=== PATIENT | male | born 2000 ===

== ENCOUNTER 2025-02-27 03:25 | Emergency (ER) | payer OTHER, SELFPAY ==
[2025-02-27] VITALS (21 sets, daily range): BP systolic 89–105; BP diastolic 49–62; PULSE 83–97; RESP 12–27; TEMP 36.1; O2SAT 87–100; BMI 21.2
--- NOTE | 2025-02-27 03:54 | DI.CT.S_ITS ---
PROCEDURE: CT HEAD/BRAIN WO CON INDICATIONS: AMS, etoh, unknown injury/fall TECHNIQUE: Noncontrast 4.5 mm thick angled axial sections acquired from the foramen magnum to the vertex, with coronal and sagittal reformats. For radiation dose reduction, the following was used: automated exposure control, adjustment of mA and/or kV according to patient size. COMPARISON: None. FINDINGS: Image quality: Diagnostic. CSF spaces: Basal cisterns are patent. No extra-axial fluid collections. Ventricles are normal in size and shape. Brain: No midline shift. No intracranial mass effect or hemorrhage. Varela- white matter interface is normal. Skull and face: Calvarium and visualized facial bones are intact, without suspicious lesions. Sinuses: Visualized sinuses and mastoids are clear. IMPRESSION: No evidence acute intracranial process. Comment: Final report is concordant with preliminary interpretation provided by [facility]. Dictated by: Augusto Zavala M.D. on 02/27/2025 at 8:02 Approved by: Augusto Zavala M.D. on 02/27/2025 at 8:03
--- NOTE | 2025-02-27 03:54 | DI.CT.S_ITS ---
PROCEDURE: CT CERVICAL SPINE WO CON INDICATIONS: etoh, AMS, unknown injury TECHNIQUE: Noncontrast 3 mm thick sections acquired from the skull base to the T4 level. Sagittal and coronal reformats were then constructed. For radiation dose reduction, the following was used: automated exposure control, adjustment of mA and/or kV according to patient size. COMPARISON: None. FINDINGS: Image quality: Excellent. Bones: No fractures or dislocations. Visualized superior ribs are intact. Soft tissues: Prevertebral soft tissues are normal in thickness. No paravertebral hematomas. No apical pneumothoraces. IMPRESSION: 1. No acute cervical fracture or dislocation. Comment: Final report is concordant with preliminary interpretation provided by [facility]. Dictated by: Augusto Zavala M.D. on 02/27/2025 at 8:03 Approved by: Augusto Zavala M.D. on 02/27/2025 at 8:04
--- NOTE | 2025-02-27 03:56 | ED.AMS ---
HPI - Altered Mental Status <Navdeep Villalba MD - Last Filed: 02/27/25 16:49> General Chief Complaint: Toxicology Problem Stated Complaint: etoh Time Seen by Provider: 02/27/25 03:52 Source: EMS Mode of arrival: EMS History of Present Illness HPI narrative: 24-year-old male found at [facility] with altered mental status, arrival by ambulance, suspected substance abuse, suspected alcohol and/or other substance intoxication. No known suicidal ideation but details not known. Unknown if patient has any seizure disorder, or specifics of any substances that could have been taking, or any trauma that may or may not have occurred. No incontinence of urine or stool reported. No other history known. Exam <Navdeep Villalba MD - Last Filed: 02/27/25 16:49> Narrative Exam Narrative: GENERAL: Well-developed patient, decreased mental status, alcohol on breath. HEAD: Atraumatic. Normocephalic. EYES: Pupils equal round and reactive. Extraocular motions intact. No scleral icterus. No injection or drainage. ENT: Nose without bleeding, purulent drainage. Throat without erythema, tonsillar hypertrophy or exudate. Airway patent. NECK: Trachea midline. Non tender CARDIOVASCULAR: Regular rate and rhythm without murmurs, gallops, or rubs. RESPIRATORY: Clear to auscultation. Breath sounds equal bilaterally. No wheezes, rales, or rhonchi. GASTROINTESTINAL: Abdomen soft, non-tender, nondistended. EXTREMITIES: No edema or joint tenderness. BACK: Nontender without deformity or crepitance. No flank tenderness. NEURO: AOx3. Decreased mental status, seems to be maintaining his airway, pupils equal and round. Withdraws to pain. No decorticate or decerebrate posturing. SKIN: No rash or erythema of visible areas Initial Vital Signs Initial Vital Signs: Vital Signs Pulse Rate 88 02/27/25 03:26 Blood Pressure 102/54 L 02/27/25 03:26 Pulse Oximetry 95 02/27/25 03:26 Oxygen Delivery Method Room Air 02/27/25 03:26 <Jazmyne Mcclellan DO - Last Filed: 02/27/25 17:39> Initial Vital Signs Initial Vital Signs: Vital Signs Pulse Rate 88 02/27/25 03:26 Blood Pressure 102/54 L 02/27/25 03:26 Pulse Oximetry 95 02/27/25 03:26 Oxygen Delivery Method Room Air 02/27/25 03:26 Course <Navdeep Villalba MD - Last Filed: 02/27/25 16:49> Orders Ordered: ED Orders 02/27/25 11:12 Consult to [facility] [employer] Stat Discontinued Medications Sodium Chloride (Normal Saline 0.9%) 1,000 mls @ 1,000 mls/hr IV BOLUS ONE Stop: 02/27/25 05:12 Last Infusion: 02/27/25 05:32 Dose: Infused Documented By: Admin: 02/27/25 04:32 Dose: 1,000 mls/hr Documented By: KARYN Vital Signs Vital signs: Vital Signs - 8 hr 02/27/25 09:46 02/27/25 11:52 02/27/25 11:54 Pulse Rate 96 H 94 H Respiratory Rate 25 H Blood Pressure 101/56 L Pulse Oximetry 94 98 Oxygen Delivery Method 02/27/25 11:56 02/27/25 12:00 Pulse Rate 89 97 H Respiratory Rate 20 Blood Pressure 101/56 L Pulse Oximetry 98 98 Oxygen Delivery Method Room Air <Jazmyne Mcclellan DO - Last Filed: 02/27/25 17:39> Orders Ordered: ED Orders 02/27/25 11:12 Consult to [facility] Al[employer] Stat Discontinued Medications Sodium Chloride (Normal Saline 0.9%) 1,000 mls @ 1,000 mls/hr IV BOLUS ONE Stop: 02/27/25 05:12 Last Infusion: 02/27/25 05:32 Dose: Infused Documented By: Admin: 02/27/25 04:32 Dose: 1,000 mls/hr Documented By: KARYN Vital Signs Vital signs: Vital Signs - 8 hr 02/27/25 09:46 02/27/25 11:52 02/27/25 11:54 Pulse Rate 96 H 94 H Respiratory Rate 25 H Blood Pressure 101/56 L Pulse Oximetry 94 98 Oxygen Delivery Method 02/27/25 11:56 02/27/25 12:00 Pulse Rate 89 97 H Respiratory Rate 20 Blood Pressure 101/56 L Pulse Oximetry 98 98 Oxygen Delivery Method Room Air MDM - Altered Mental Status <Navdeep Villalba MD - Last Filed: 02/27/25 16:49> Lab Data Attestation: I reviewed the patient's lab results. Lab results narrative: White blood cell count 6500, hemoglobin 17.3, platelets adequate. Glucose 106 normal renal function, serum CO2, serum potassium. Sodium 147 slight increased. T bili and alkaline phosphatase normal, transaminases mildly elevated. Urine drug screen positive for cocaine and benzodiazepine. 02/27/25 03:15 02/27/25 03:15 Labs: Lab Results 02/27/25 02/27/25 02/27/25 Range/Units 03:15 04:25 06:08 WBC 6.5 (4.5-11.0) X10^3/uL RBC 5.23 (4.5-5.9) X10^6/uL Hgb 17.3 (13.5-17.5) g/dL Hct 49.2 (41-53) % MCV 94.1 (80-100) fL MCH 33.0 (26-34) PG MCHC 35.1 (30-36) % RDW 16.6 H (11.6-14.8) % Plt Count 206 (150-400) X10^3/uL Neut % (Auto) 62.0 (50-75) % Lymph % (Auto) 25.4 (25-40) % Brule % (Auto) 10.4 (3-14) % Eos % (Auto) 1.5 L (2-4) % Baso % (Auto) 0.7 (0-2) % Neut # (Auto) 4000 (5653-4463) /uL Lymph # (Auto) 1700 (7398-4602) /uL Brule # (Auto) 700 (0-900) /uL Eos # (Auto) 100 (0-450) /uL Baso # (Auto) 0 (0-100) /uL Sodium 147 H (137-145) mmol/L Potassium 3.8 (3.4-5.1) mmol/L Chloride 105 (98-107) mmol/L Carbon Dioxide 24 (22-32) mmol/L BUN 14 (9-20) mg/dL Creatinine 0.93 (0.66-1.25) mg/dL Estimated GFR > 60 (>60) mL/min BUN/Creatinine Ratio 15.1 (6-22) Glucose 106 H (70-99) mg/dL Calcium 9.0 (8.4-10.2) mg/dL Total Bilirubin 0.6 (0.2-1.3) mg/dL AST 77 H (17-59) IU/L ALT 119 H (<50) IU/L Alkaline Phosphatase 83 (38-126) U/L Total Protein 8.4 H (6.3-8.2) g/dL Albumin 5.1 H (3.5-5.0) g/dL Globulin 3.3 (1.7-4.1) g/dL Albumin/Globulin Ratio 1.5 (1.0-2.8) Salicylates < 1.0 (<20) mg/dL U Opiates 300ng/mL cut Negative (Negative) Ur Oxycodone Screen Negative (Negative) Urine Methadone Screen Negative (Negative) Acetaminophen < 10 (10-30) ug/mL Ur Barbiturates Screen Negative (Negative) U Tricyclic Antidepress Negative (Negative) Ur Phencyclidine Scrn Negative (Negative) Ur Amphetamines Screen Negative (Negative) U Methamphetamines Scrn Negative (Negative) Ur MDMA Scrn (Ecstasy) Negative (Negative) U Benzodiazepines Scrn Positive H (Negative) Urine Cocaine Screen Positive H (Negative) U Marijuana (THC) Screen Negative (Negative) Urine pH Normal (Normal) Urine Specific [place] Normal (Normal) Ethyl Alcohol 276 H 203 H (<10) mg/dL Ur Creatinine Normal (Normal) [facility] Narrative Medical decision making narrative: 24-year-old male picked [place] tonight [place], drinking alcohol, unclear might have also use drugs. No known SI. Arrived by EMS, decreased mental status. Afebrile, sirs screen negative. Decreased mental status, maintaining airway, some sonorous breathing for patient. Lab data: Initial BAL 276. White blood cell count 6500, hemoglobin 17.3, platelets adequate. Glucose 106 normal renal function, serum CO2, serum potassium. Sodium 147 slight increased. T bili and alkaline phosphatase normal, transaminases mildly elevated. Urine drug screen positive for cocaine and benzodiazepine. CT head noncontrast, no acute changes. See tele radiology report CT cervical spine noncontrast, no acute changes. See tele radiology report. 0630, Repeat blood alcohol level 203, decreasing. 0700, intoxication with alcohol BDZ cocaine, altered MSE, negative CT brain/Csp imaging. will need further observation for improvement MSE and safe disposition plan, seems to be maintaining his airway, has required no airway interventions thus far. Signed out to [facility] ED shift physician Dr. Mcclellan [id number] Dr. Mcclellan: Patient was signed out to myself by Dr. Villalba. Patient was seen and evaluated at 7:15 a.m. patient is sleeping not easily arousable but O2 was turned off he is maintaining his O2 sat. At 9:47 a.m. patient is awakened crusting removal of his urinary catheter. He is alert, conversant he notes he is in the [facility] region was unsure which hospital he had his. States that he ?[place]iance party too much.? Discussed with the patient and he is able to ambulate safely can potentially discharge home. <Jazmyne Mcclellan, DO - Last Filed: 02/27/25 17:39> Lab Data Labs: Lab Results 02/27/25 02/27/25 02/27/25 Range/Units 03:15 04:25 06:08 WBC 6.5 (4.5-11.0) X10^3/uL RBC 5.23 (4.5-5.9) X10^6/uL Hgb 17.3 (13.5-17.5) g/dL Hct 49.2 (41-53) % MCV 94.1 (80-100) fL MCH 33.0 (26-34) PG MCHC 35.1 (30-36) % RDW 16.6 H (11.6-14.8) % Plt Count 206 (150-400) X10^3/uL Neut % (Auto) 62.0 (50-75) % Lymph % (Auto) 25.4 (25-40) % Brule % (Auto) 10.4 (3-14) % Eos % (Auto) 1.5 L (2-4) % Baso % (Auto) 0.7 (0-2) % Neut # (Auto) 4000 (2818-2423) /uL Lymph # (Auto) 1700 (2625-5428) /uL Brule # (Auto) 700 (0-900) /uL Eos # (Auto) 100 (0-450) /uL Baso # (Auto) 0 (0-100) /uL Sodium 147 H (137-145) mmol/L Potassium 3.8 (3.4-5.1) mmol/L Chloride 105 (98-107) mmol/L Carbon Dioxide 24 (22-32) mmol/L BUN 14 (9-20) mg/dL Creatinine 0.93 (0.66-1.25) mg/dL Estimated GFR > 60 (>60) mL/min BUN/Creatinine Ratio 15.1 (6-22) Glucose 106 H (70-99) mg/dL Calcium 9.0 (8.4-10.2) mg/dL Total Bilirubin 0.6 (0.2-1.3) mg/dL AST 77 H (17-59) IU/L ALT 119 H (<50) IU/L Alkaline Phosphatase 83 (38-126) U/L Total Protein 8.4 H (6.3-8.2) g/dL Albumin 5.1 H (3.5-5.0) g/dL Globulin 3.3 (1.7-4.1) g/dL Albumin/Globulin Ratio 1.5 (1.0-2.8) Salicylates < 1.0 (<20) mg/dL U Opiates 300ng/mL cut Negative (Negative) Ur Oxycodone Screen Negative (Negative) Urine Methadone Screen Negative (Negative) Acetaminophen < 10 (10-30) ug/mL Ur Barbiturates Screen Negative (Negative) U Tricyclic Antidepress Negative (Negative) Ur Phencyclidine Scrn Negative (Negative) Ur Amphetamines Screen Negative (Negative) U Methamphetamines Scrn Negative (Negative) Ur MDMA Scrn (Ecstasy) Negative (Negative) U Benzodiazepines Scrn Positive H (Negative) Urine Cocaine Screen Positive H (Negative) U Marijuana (THC) Screen Negative (Negative) Urine pH Normal (Normal) Urine Specific [place] Normal (Normal) Ethyl Alcohol 276 H 203 H (<10) mg/dL Ur Creatinine Normal (Normal) [facility] Narrative Medical decision making narrative: 24-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 No known SI. Arrived by EMS, decreased mental status. Afebrile, sirs screen negative. Decreased mental status, maintaining airway, some sonorous breathing for patient. Lab data: Initial BAL 276. White blood cell count 6500, hemoglobin 17.3, platelets adequate. Glucose 106 normal renal function, serum CO2, serum potassium. Sodium 147 slight increased. T bili and alkaline phosphatase normal, transaminases mildly elevated. Urine drug screen positive for cocaine and benzodiazepine. CT head noncontrast, no acute changes. See tele radiology report CT cervical spine noncontrast, no acute changes. See tele radiology report. 0630, Repeat blood alcohol level 203, decreasing. 0700, intoxication with alcohol BDZ cocaine, altered MSE, negative CT brain/Csp imaging. will need further observation for improvement MSE and safe disposition plan, seems to be maintaining his airway, has required no airway interventions thus far. Signed out to oncoming ED shift physician Dr. Mcclellan [id number] Dr. Mcclellan: Patient was signed out to myself by Dr. Villalba. Patient was seen and evaluated at 7:15 a.m. patient is sleeping not easily arousable but O2 was turned off he is maintaining his O2 sat. At 9:47 a.m. patient is awakened crusting removal of his urinary catheter. He is alert, conversant he notes he is in the [facility] region was unsure which hospital he had his. States that he ?[place] party too much.? Discussed with the patient and he is able to ambulate safely can potentially discharge home. Patients family at bedside. They would like patient to meet with the [facility] but he is not interested in pursuing detox at this time. No SI, no HI. Discharge Plan Departure Patient Disposition: Home Clinical Impression: Alcoholic intoxication, Cocaine use Instructions: DI for Alcohol Use Disorder Activity Restrictions/Additional Instructions: Follow up as needed. If you have any interested in resources for detox or assistance with a substance use you can reach out to our oncology social work at [phone] If you have any other new or concerning changes please return to the emergency department, any changes to mentation, difficulty with breathing, fevers, persistent vomiting or any other new or concerning changes. Stand Alone Forms: Patient Portal/API
[2025-02-27 04:03] LABS: Add Manual Diff / Slide Review NO; Hematocrit 49.2 % (41-53); Hemoglobin 17.3 g/dL (13.5-17.5); Lymphocytes Absolute Auto 1700 /uL (1100-4500); Mean Corpuscular HGB Conc 35.1 % (30-36); Mean Corpuscular Hemoglobin 33.0 PG (26-34); Mean Corpuscular Volume 94.1 fL (80-100); Platelet Count 206 X10^3/uL (150-400)
[2025-02-27 04:09] LABS: Alanine Aminotransferase 119 IU/L (<50); Albumin 5.1 g/dL (3.5-5.0); Albumin Globulin Ratio 1.5 (1.0-2.8); Alkaline Phosphatase 83 U/L (38-126); Blood Urea Nitrogen 14 mg/dL (9-20); Calcium 9.0 mg/dL (8.4-10.2); Carbon Dioxide 24 mmol/L (22-32); Chloride 105 mmol/L (98-107); Estimated Glomerular Filt Rate > 60 mL/min (>60); Ethanol (ETOH) 276 mg/dL (<10); Globulin 3.3 g/dL (1.7-4.1); Glucose 106 mg/dL (70-99); HEMOLYSIS < 15 (0-50); Potassium 3.8 mmol/L (3.4-5.1); Sodium 147 mmol/L (137-145); Total Protein 8.4 g/dL (6.3-8.2)
--- NOTE | 2025-02-27 04:09 | PC.NURSE ---
Pt to imaging via ED stretcher with helpdesk technician, RN, and respiratory care technician
[2025-02-27] MEDS: SODIUM CHLORIDE 0.9% 1,000 ML 1000 ML IV (04:32)
[2025-02-27 04:40] LABS: Ur Specific Gravity Normal (Normal)
[2025-02-27 04:41] LABS: UR Morphine/Opiate cutoff 300 Negative (Negative); Urine MDMA Negative (Negative); Urine Methamphetamines Negative (Negative); Urine Tetrahydrocannabinol Negative (Negative); Urine Tricyclic Antidepressant Negative (Negative)
[2025-02-27 06:28] LABS: Ethanol (ETOH) 203 mg/dL (<10)
[2025-02-27 06:49] LABS: Acetaminophen < 10 ug/mL (10-30); Salicylate < 1.0 mg/dL (<20)
--- NOTE | 2025-02-27 12:37 | CM.SWNOTE ---
ED ASSOCIATE CHEMIST Note Patient is 24 y/o male who presents to ED via EMS [place]. Patient's toxicology is positive with BAL of 276 upon arrival as well as positive for Benzodiazepines and Cocaine. ASSOCIATE CHEMIST is consulted to see patient upon his discharge with patient's mother present. ASSOCIATE CHEMIST enters room, present in room is patient' patient's mother and RN upon patient's d/c. Patient presents with frustration that his mother is present and did not recall that he asked for RN to call patient's mother. Patient's mother was very concerned that patient was in danger due to his risky behavior and very relieved that he was safe at the hospital. It is reported that patient has several court ordered mandates to engage in KIM outpatient, patient was previously on DOC. Patient's mother endorses concern that he will end up in senior care or pass away. Patient presents with lack of concern regarding his substance use. ASSOCIATE CHEMIST provides patient and mother with lists of outpatient and inpatient KIM resources as well as CA group information. Patient is choosing to d/c to home, patient is medically clear for d/c, patient was able to ambulate in the ED with RN. Plan: patient to d/c to home with mother, patient to follow up with resources provided. DEBBIE RenaeSW
== END 2025-02-27 12:10 | disposition home or self-care (01) ==
PROVIDERS: Emergency Medicine; Emergency Provider Emergency Medicine
DX: F10.129 Alcohol abuse with intoxication, unspecified (principal); F14.90 Cocaine use, unspecified, uncomplicated; R41.82 Altered mental status, unspecified; Y90.8 Blood alcohol level of 240 mg/100 ml or more
CPT/HCPCS: 36415; 70450; 72125; 80053; 80305; 80320; 80329; 85025; 99284; 99285; G0480; J7030